=== PATIENT | female | born 1980 | race Caucasian/White ===

== ENCOUNTER 2021-09-27 21:29 | Emergency (ER) | payer BC ==
[~2021-09-27] VITALS: Ht 157.5 cm; Wt 61.5 kg
[2021-09-27 21:30] VITALS: BP 137/86
[2021-09-27] MEDS ORDERED: PERCOCET 5MG/325MG TAB PO ONE (23:05)
[2021-09-27] MEDS ORDERED: PERC5TAB12 PO (23:44)
[2021-09-27] MEDS ORDERED: MIRA3350 PO (23:44)
== END 2021-09-28 00:14 | disposition home or self-care (01) ==
LOC: M ED 21:29
DX: S52.502A Unspecified fracture of the lower end of left radius, initial encounter for closed fracture (principal); W01.0XXA Fall on same level from slipping, tripping and stumbling without subsequent striking against object, initial encounter; Y92.009 Unspecified place in unspecified non-institutional (private) residence as the place of occurrence of the external cause; Z88.5 Allergy status to narcotic agent; Z79.899 Other long term (current) drug therapy

== ENCOUNTER → 2021-09-29 | Outpatient (CLI) | payer BC ==
[~2021-09-29] MED LIST: MIRA3350 PO; PERC5TAB12 PO
== END ==
LOC: M EKG 10:51
PROVIDERS: ATTEND Orthopaedic Surgery
DX: Z01.818 Encounter for other preprocedural examination (principal)